=== PATIENT | male | born 1975 | race Caucasian/White ===

== ENCOUNTER 2016-08-03 22:03 | Emergency (ER) | payer BC ==
[~2016-08-03] VITALS: Ht 165.1 cm; Wt 78.8 kg
[~2016-08-03 22:03] MED LIST: CYCL-375 PO; NO ROUTINE MEDS
[2016-08-03 22:09] VITALS: Ht 165.1 cm; Wt 78.8 kg
--- OUTSIDE RECORDS SUMMARY | 2016-08-03 22:09 | XMS REPORT | Continuity of Care Document ---
Author Author [facility] Organization [facility] Address Unknown Phone Unavailable Support Name Relationship Address Phone CHIO VELARDE MD Caregiver [address] [place] [address] Unavailable FIORDALIZA MEDRANO DO Caregiver [address] [place] [address] Unavailable ANDRES TRUJILLO Next Of Kin [address] [place], [place] [id number] Insurance Providers Guarantor Erik Green Address [address] [phone] Email DENIED/NO TO PT PORTAL Payer [employer] Other Policy Number [id number] Subscriber's Name Erik Green Relationship 18 Self Group Number [id number] Chief Complaint and Reason for Visit Chief Complaint Headache Reason for Visit Headache Problems Active Problems Medical Problem Onset Date Status Abscess of scrotum Unknown Acute Past Problems Medical Problem Onset Date Headache Unknown Medications Current Home Medications Medication Dose Units Route Directions Days Qty Instructions Start Date Cyclobenzaprine Hcl 10 Mg Tablet 1 Tab Oral Three Times A Day 15 Tablet 11/05/15 No Routine Meds 11/05/15 Past Home Medications Medication Directions Ordered Status None Daily , 06/30/09 Discontinued Social History Social History Problem Response Recorded Date/Time Onset Date Status Hx Substance Use No 11/05/2015 12:20pm Not Applicable Not Applicable Hx Alcohol Use Yes 11/05/2015 12:20pm Not Applicable Not Applicable Has the pt used tobacco in the last 12 months Yes 07/16/2015 7:30am Not Applicable Not Applicable Query Response Start Date Stop Date Smoking Status Current every day smoker Hospital Discharge Instructions No hospital discharge instructions. Plan of Care Discharge Date 11/05/15 1:26pm Disposition 01 DISCHARGED HOME, SELF-CARE Condition at Discharge Stable Instructions/Education Provided DI for Headache Forms Provided Return to Work/School Permit Prescriptions See Medication Section Referrals BÁRBARA DRAPER DO Address: [address] [place] [phone] Additional Instructions/Education Go home and rest in a quiet and dark room. May take OTC medications as needed to help with the pain if this does not fully go away. I do recommend that you use Ibuprofen or Aleve on a schedule and use the Cyclobenzaprine as needed for muscle spasms. Follow up with your primary care provider as needed. Care Plan and Goals Physician Care Plan Problem:Headache Goal: Follow up with primary care provider Instructions: Take medications and follow care plan as discussed/written Functional Status No functional status results. Allergies, Adverse Reactions, Alerts Allergen Type Severity Reaction Status Last Updated No Known Drug Allergies Allergy Unknown Active 05/06/15 Immunizations Query Response on File Recorded Date/Time Hx Influenza Vaccination Yes 07/16/15 7:30am Hx Pneumococcal Vaccination No 07/16/15 7:30am Hx Tetanus, Diptheria, Pertussis Y 03/09/11 12/15/12 1:25pm Hx Influenza Vaccination Yes 07/16/15 7:30am Hx Tetanus, Diptheria, Pertussis Y 03/09/11 12/15/12 1:25pm Vital Signs Acute Vital Signs Vital Response Date/Time Temperature (Fahrenheit) 98.0 deg F (96.8 - 99.1) 11/05/2015 1:37pm Temperature (Calculated Celsius) 36.49356 degrees C (36.0 - 37.3) 11/05/2015 1:37pm Pulse Rate (adult) 69 bpm (60 - 100) 11/05/2015 1:37pm Respiratory Rate 16 breaths/min (10 - 20) 11/05/2015 1:37pm O2 Sat by Pulse Oximetry 98 % (90 - 100) 11/05/2015 1:37pm Blood Pressure 134/91 mm Hg 11/05/2015 1:37pm Height (Feet) 5 feet 11/05/2015 12:20pm Height (Inches) 8.00 inches 11/05/2015 12:20pm Weight (Kilograms) 75.800 kg 11/05/2015 12:20pm Body Mass Index (BMI) 25.0 11/05/2015 12:20pm Results No known relevant diagnostic tests, laboratory data and/or discharge summary. Procedures No known history of procedures. Encounters Encounter Location Arrival/Admit Date Discharge/Depart Date Attending Provider Departed Emergency Room [facility] 11/05/15 12:15pm 11/05/15 1: 26pm FIORDALIZA MEDRANO DO Recent Diagnosis
--- NOTE | 2016-08-03 22:18 | NUR ---
DR DR MADRIGAL AT BEDSIDE.
--- NOTE | 2016-08-03 22:26 | ERPDOC ---
Departure Disposition Decision Date: August 03, 2016 Disposition Decision Time: 23:57 Disposition: 01 DISCHARGED HOME, SELF-CARE Impression Impression Impression: Primary Impression: Cellulitis of scrotum Additional Impression: Tinea cruris Severity: Severe Condition: Improved Seen By: Physician only Referrals: CHIO VELARDE MD (Family) Patient Instructions: Cellulitis (ED), Tinea Corporis (ED) Problems/Meds/Labs Reviewed?: Yes Medications reviewed and manag: Yes Additional Instructions: Take Keflex 500 mg, one tablet 3 times daily for 10 days Baclofen 10 mg one tablet twice daily for 10 days Apply Lamisil cream to the large area of rash twice daily until healed May use ibuprofen up to 800 mg 4 times daily as needed for pain May also use tramadol 50 mg 4 times daily as needed for more severe pain Call tomorrow to get appointment with your primary physician later this week for recheck Follow up care ordered?: Yes Mental Status: Alert Scripts Tramadol HCl (Tramadol HCl) 50 Mg Tablet 50 MG PO Q6HR for PAIN, #30 TAB Take 1 tablet, by mouth, every 6 hours. Prov: BÁRBARA MADRIGAL MD 08/03/16 Sulfamethoxazole/Trimethoprim (Bactrim Ds Tablet) 1 Each Tablet 1 TAB PO BID, #20 TAB Take 1 tablet, by mouth, 2 times a day. Prov: BÁRBARA MADRIGAL MD 08/03/16 Cephalexin (Keflex) 500 Mg Capsule 500 MG PO TID, #30 CAP Prov: BÁRBARA MADRIGAL MD 08/03/16 HPI - Male General Chief Complaint: Male Urogenital Problems Stated Complaint: SWELLING IN TESTICLES Time Seen by Provider: 22:04 Source: patient, family Exam Limitations: no limitations HPI - Male Initial Comments Diffuse wide rash to the groin for over a year. Has not seen any doctor, but has been using Goldbond powder and cream without improvement. Then 4-5 days ago he began getting swelling nodules in the right inguinal area. Now getting severe induration and a weeping crusted area to the right scrotum and shaft of the penis that is spreading. Pain increasing. Has not taken any meds for pain and not contacted Dr. Velarde for this. Also not seen any doctor in over a year and not using his Lisinopril or Meloxicam/Tramadol in as long. Occurred At: home Onset: Gradual Duration: 1 week Location: groin Associated Symptoms: DENIES: abdominal pain, diaphoresis, dysuria, fever/chills , loss of bladder control, lower back pain, lumps, mass, nausea/vomiting, nocturia, polyuria, swelling, syncope, urinary frequency Hx of Similar Symptoms: No Allergies: Coded Allergies: No Known Drug Allergies (Verified Allergy, Unknown, 08/03/16) Past History Patient Medical History Problem List Updates: gout Past Medical History Metabolic: hypertension Psychological: alcohol abuse, drug abuse Surgical History Denies Surgeries Family History Family PMH: FOUND: [place], cancer, diabetes Vaccines Hx Influenza Vaccination: Yes Hx Pneumococcal Vaccination: No Hx Tetanus, Diptheria, Pertuss: Yes (03/09/11) Social History Smoking Status: Never smoker Does patient use chewing tobac: No Second Hand Exposure: No Substance Use Type: does not use Alcohol Intake: none Record Review Pertinent history updated: Yes Review of Systems Constitutional Constitutional: DENIES: appetite decrease, appetite increase, chills, dizziness , fever, weakness ENMT Ears: DENIES: pain Hearing: DENIES: hearing loss, tinnitus Balance: DENIES: vertigo Mouth/Throat: DENIES: change in swallowing, change in voice, hoarsness, painful swallowing, sore throat Cardiovascular Cardiac: DENIES: chest pain, dyspnea on exertion Rhythm/Rate: DENIES: irregular beat, palpitations, tachycardia Vascular: DENIES: pedal edema Pulmonary Respiratory: DENIES: cough, dyspnea, pleuritic chest pain GI Upper Abdomen: DENIES: dysphagia, heartburn/indigestion, nausea, pain, vomiting Lower Abdomen: DENIES: blood in stool, constipation, diarrhea, pain Comments groin rash and scrotal and penile rash with induration Musculoskeletal General: DENIES: cramps, joint pain, joint swelling, pain, weakness Integumentary Skin: DENIES: rash, sores Physical Exam General General Nourishment: well nourished, well developed, appears stated age General Body Habitus: disheveled Vitals and Pain First Documented Vital Signs Date Time Temp Pulse Resp B/P Pulse Ox O2 Delivery O2 Flow Rate FiO2 08/03/16 22:09 98.1 103 16 169/96 97 Room Air Weight: Kilograms: Height (feet): 5 Height (inches): 8.00 Triage Pain Scale: RN VS reviewed by Provider: Yes Normal Exams: Head: Normocephalic w/o trauma Eyes: Pupils are PERRLA w/ EOMI, No scleral icterus, irritation, or foreign bodies noted ENMT: No facial trauma, nasal exudates, pharyngeal erythema, or exudates are noted Neck: Full range of motion, without adenopathy, JVD, bruits or thyromegaly Chest/Resp: Clear all george, with good airflow, and symmetry bilaterally CV: Regular rate and rhythm, without murmur or gallop, Pulses 2+ all extremities, capillary refill, <2 seconds all ext., no pedal edema noted Abdomen: Bowel sounds positive, soft, non-tender, non-distended, no hepatosplenomegaly, masses or bruits noted Musculoskeletal: No tenderness, or deformity noted, good range of motion, all extremities Integumentary: No rashes, hives, or bruising noted, hair and nails, without abnormality Neurologic: Patient is alert, and oriented, cranial nerves, motor/sensory/ cerebellar, exams w/o gross deficits, to observation Psychiatric: Patient exhibits, appropriate attention, emotion and affect (brief) Comments wide mildly erythematous rash covering the groin and inner thighs, scrotum and penis, raised silvery border consistent with tinea cruris. right scrotum shows oozing crusted rash 2cm with surrounding induration of the scrotum and portion of the shaft of penis. Right inguinal lymph nodes swollen and right inguinal canal swollen and tenders. Progress Results/Orders Orders Procedure Category Date Status Time Iv Lock (Ed Only) EDM 08/03/16 Transmitted 22:19 Cbc W/Auto LAB 08/03/16 Complete Diff-Reflex Manual Cmp - Comprehensive LAB 08/03/16 Complete Metabolic Us Testicular US 08/03/16 Logged Ketorolac (Toradol) PHA 08/03/16 Complete 22:30 Tramadol (Ultram) PHA 08/03/16 Complete 22:30 Ceftriaxone I.V. (Er PHA 08/03/16 Complete Use Only) (Rocephin 22:30 Sulfamethoxazole/Trimethoprim PHA 08/04/16 In Process (Bactrim D 09:00 Terbinafine 1% Cream PHA 08/03/16 Complete (Lamisil At) 22:30 Lab Results Laboratory Tests Test 08/03/16 22:28 White Blood Count 10.3T/MM3 Red Blood Count 4.85M/MM3 Hemoglobin 13.7GM/DL Hematocrit 40.4% Mean Corpuscular Volume 83.3UM3 Mean Corpuscular Hemoglobin 28.2UUG Mean Corpuscular Hemoglobin Concent 33.9GM/DL RDW Standard Deviation 40.9FL Platelet Count 325T/MM3 Mean Platelet Volume 9.0UM3 Immature Granulocyte % (Auto) 0.5% Neutrophils (%) (Auto) 49.5% Lymphocytes (%) (Auto) 29.3% Monocytes (%) (Auto) 11.5% Eosinophils (%) (Auto) 8.3% Basophils (%) (Auto) 0.9% Absolute Immature Granulocyte (auto 0.05T/MM3 Absolute Neutrophils (auto) 5.1T/MM3 Absolute Lymphocytes (auto) 3.0T/MM3 Absolute Monocytes (auto) 1.2T/MM3 Absolute Eosinophils (auto) 0.9T/MM3 Absolute Basophils (auto) 0.1T/MM3 Turbidity 27 Sodium Level 145MEQ/L Potassium Level 3.9MEQ/L Chloride Level 108MEQ/L Carbon Dioxide Level 23MEQ/L Anion Gap 14MEQ/L Blood Urea Nitrogen 12.0MG/DL Creatinine 0.8MG/DL Glomerular Filtration Rate Calc 106 BUN/Creatinine Ratio 15RATIO Glucose Level 117MG/DL Calculated Osmolality 280MOSM/KG Calcium Level 9.6MG/DL Total Bilirubin 0.20MG/DL Icterus Index < 2 Aspartate Amino Transf (AST/SGOT) 25U/L Alanine Aminotransferase (ALT/SGPT) 46U/L Alkaline Phosphatase 78U/L Total Protein 7.5G/DL Albumin 4.4G/DL Globulin 3.1G/DL Albumin/Globulin Ratio 1.4RATIO Chemistry Specimen Hemolysis < 15 Medications Current ED Medications Ketorolac Tromethamine (Toradol) 30 mg O ONCE IV Last administered on 22:39; Start 08/03/16 at 22:30; Stop 08/03/16 at 22:31; Status DC Tramadol HCl 50 mg 50 mg O ONCE PO Last administered on 08/03/16 22:38; Start 08/03/16 at 22:30; Stop 08/03/16 at 22:31; Status DC Ceftriaxone Sodium/Sodium Chloride (Rocephin/NS) 100 ml @ 100 mls/hr O ONCE IV Last administered on 08/03/16 22:42; Start 08/03/16 at 22:30; Stop at 23:29; Status DC Trimethoprim/ Sulfamethoxazole (Bactrim Ds) 1 tab BID PO Last administered on 22:37; Start 08/04/16 at 09:00 Terbinafine HCl (Lamisil At) 1 applic O ONCE TOP ; Start 08/03/16 at 22:30; Stop 08/03/16 at 22:31; Status DC Progress Progress Given Toradol 30mg IV, Tramadol 50mg po, Bactrim and Rocephin started in ER. US Testicle and inguinal area - positive right inguinal lymph nodes are seen on sonogram, there is scrotal wall thickening, however there is no evidence of epididymitis torsion or hernia. CBC - n CMP - n Patient is started on Keflex and Bactrim, tramadol for pain, and is instructed to follow-up with Dr. Coyle or this week for recheck Patient is also instructed to use Lamisil cream applied to the groin rash twice a day until healed BÁRBARA MADRIGAL MD August 03, 2016 22:26
--- NOTE | 2016-08-03 22:26 | NUR ---
[facility] CALLED AND IS ONHER WAY IN FOR THE SONOGRAM
[2016-08-03] MEDS ORDERED: CEFTRIAXONE I.V. (ER USE ONLY) 1 G in NORMAL SALINE 100 ML IV ONE (22:30)
[2016-08-03] MEDS ORDERED: TERBINAFINE 1% CREAM 15gm TUBE TOP ONE (22:30)
[2016-08-03] MEDS ORDERED: KETOROLAC 30mg/ml INJECTION IV ONE (22:30)
[2016-08-03] MEDS ORDERED: TRAMADOL 50 MG TABLET PO ONE (22:30)
[2016-08-03 22:33] LABS: BASOPHILS # (AUTO) 0.1 T/MM3 (0-0.2); BASOPHILS % (AUTO) 0.9 % (0-2); EOSINOPHILS # (AUTO) 0.9 T/MM3 (0-0.5); EOSINOPHILS % (AUTO) 8.3 % (0-4); HCT - HEMATOCRIT 40.4 % (41-53); HGB - HEMOGLOBIN 13.7 GM/DL (13.5-17.5); IMMATURE GRANULOCYTE # (AUTO) 0.05 T/MM3 (0.00-0.03); IMMATURE GRANULOCYTE % (AUTO) 0.5 % (0.0-0.5); LYMPHOCYTES % (AUTO) 29.3 % (23-45); MEAN CORPUSCULAR HGB 28.2 UUG (26-34); MEAN CORPUSCULAR HGB CONC(MCHC 33.9 GM/DL (31-37); MEAN CORPUSCULAR VOLUME 83.3 UM3 (80-100); MONOCYTES # (AUTO) 1.2 T/MM3 (0-0.8); MONOCYTES % (AUTO) 11.5 % (0-9.0); NEUTROPHILS #(AUTO)-ABSOLUTE 5.1 T/MM3 (1.8-7.7); NEUTROPHILS % (AUTO) 49.5 % (33-66); RED BLOOD COUNT 4.85 M/MM3 (4.50-5.90); WBC - WHITE BLOOD COUNT 10.3 T/MM3 (4.5-11.0)
[2016-08-03 22:45] LABS: ALBUMIN 4.4 G/DL (3.5-5.0); ALBUMIN/GLOBULIN RATIO 1.4 RATIO (1.1-2.2); ALKALINE PHOSPHATASE 78 U/L (38-126); ALT (SGPT) 46 U/L (21-72); ANION GAP 14 MEQ/L (5-15); AST (SGOT) 25 U/L (17-59); BUN/CREATININE RATIO 15 RATIO (6-26); CALCIUM 9.6 MG/DL (8.4-10.2); CHLORIDE 108 MEQ/L (98-107); CO2 - CARBON DIOXIDE 23 MEQ/L (22-30); CREATININE 0.8 MG/DL (0.8-1.5); GLOMERULAR FILTRATION RATE 106; GLUCOSE 117 MG/DL (75-110); POTASSIUM 3.9 MEQ/L (3.6-5); SODIUM 145 MEQ/L (134-144); TOTAL PROTEIN 7.5 G/DL (6.3-8.2)
--- NOTE | 2016-08-03 22:45 | NUR ---
SONO TECH AT BEDSIDE.
[2016-08-03 23:10] VITALS: TEMP 97.7
--- NOTE | 2016-08-03 23:14 | NUR ---
JOSEPHINEO REMAINS IN ROOM FOR TEST.
--- NOTE | 2016-08-03 23:15 | NUR ---
REPORT GIVEN TO EFRAIN ROTH. CARE ASSUMED.
[2016-08-03] MEDS ORDERED: CEPH-583 PO (23:59)
[2016-08-03] MEDS ORDERED: SULF1TAB42 PO (23:59)
[2016-08-03] MEDS ORDERED: TRAM50TA4 PO (23:59)
[2016-08-04 00:38] VITALS: BP 150/88; PULSE 77; RESP 12; O2SAT 97
--- NOTE | 2016-08-04 00:38 | NUR ---
DEPART PT IS DISCHARGED AT THIS TIME, INSTRUCTIONS ARE REVIEWED AND UNDERSTANDING IS VOICED. PT LEAVES AMBULATORY WITH FEMALE AT THIS TIME.
--- NOTE | 2016-08-04 08:11 | DI ---
Indication: ITS.REASON: scrotal and right inguinal swelling PROCEDURE: US TESTICULAR: Encounter: Initial Comparison: None FINDINGS: Both testicles are present in expected location. The testicles demonstrate a homogenous echotexture without intratesticular mass. The right testicle measures 5.1 x 2.4 x 3 cm, and the left testicle measures 4.6 x 2.5 x 2.7 cm. Color Doppler imaging demonstrates symmetric, arterial flow throughout both testicles. Normal pulsed Doppler arterial and venous waveforms were obtained from each testicle. Epididymal heads appear grossly normal. No abnormal intrascrotal fluid collections. Scrotal skin thickening and hyperemia. Small bilateral varicoceles. Right inguinal lymph nodes. IMPRESSION: Normal sonographic appearance of the testicles. No evidence of torsion. Scrotal skin thickening and hyperemia of uncertain etiology. There is a preliminary report by [facility]. .
[2016-08-04] MEDS ORDERED: SULFAMETHOXAZOLE/TMP 800mg/160mg TABLET PO SCH (09:00)
== END 2016-08-04 00:38 | disposition home or self-care (01) ==
LOC: ED 22:03
DX: N49.2 Inflammatory disorders of scrotum (principal); B35.6 Tinea cruris
CPT/HCPCS: 76870; 80053; 85025; 96365; 96375; 99284; J0696; J1885; J7050